=== PATIENT | male | born 1955 | race Caucasian/White ===

== ENCOUNTER 2022-07-26 07:31 | Outpatient (CLI) | payer MEDICARE, SELFPAY ==
[2022-07-26 09:57] LABS: Albumin Level 4.6 g/dL (3.5-5.1)
[2022-07-26 10:02] LABS: Anion Gap 12 mmol/L (8-16); Blood Urea Nitrogen 21 mg/dL (9-20); Calcium 9.2 mg/dL (8.4-10.2); Carbon Dioxide 29 mmol/L (22-30); Chloride 97 mmol/L (98-107); Estimated Glomerular Filt Rate > 60; Glucose 102 mg/dL (65-110); Sodium 138 mmol/L (137-145)
[2022-07-26 10:07] LABS: Basophils Percent Auto 0.3 % (0.2-1.2); Eosinophils Percent Auto 0.1 % (0-4.4); Hematocrit 37.2 % (42.0-52.0); Immature Granulocyte Absolute 0.26 K/mm3 (0.00-0.031); Immature Granulocyte Percent A 1.9 % (0-0.5); Lymphocytes Absolute Auto 0.69 K/mm3 (0.9-3.2); Lymphocytes Percent Auto 5.1 % (18.3-44.2); Mean Corpuscular HGB Conc 32.3 g/dl (32-36); Mean Corpuscular Hemoglobin 32.6 pg (26-34); Mean Corpuscular Volume 101.1 fl (80-100); Monocytes Absolute Auto 0.5 K/mm3 (0.1-0.6); Monocytes Percent Auto 3.8 % (2.6-8.5); Neutrophils Percent Auto 88.8 % (45.5-73.1); Platelet Count Result 271 k/mm3 (150-375); Red Blood Count 3.68 M/mm3 (4.6-6.20); Red Cell Distribution Width 13.9 % (11.5-14.5); White Blood Count 13.5 K/mm3 (4.5-10.0)
[2022-07-26 10:09] LABS: Appearance Urine Clear (Clear); Bilirubin Urine Negative (Negative); Blood Urine Negative (Negative); Color Urine Yellow (Yellow); Glucose Urine UA Negative (Negative); Ketones Urine Negative (Negative); Leukocyte Esterase Ur Negative LEU/UL (Negative); Nitrate Urine Negative (Negative); Protein Urine Negative (Negative); Specific Grav Ur 1.015 (1.001-1.035); Urobilinogen Urine 0.2 mg/dL (<2.0)
[2022-07-26 10:51] LABS: Urine Cotinine NEGATIVE
[2022-07-26 13:23] LABS: Add Urine Microscopic? NO
== END 2022-07-26 07:32 | disposition home or self-care (01) ==
PROVIDERS: Anesthesiology; PCP Internal Medicine; Visit Provider Specialist
DX: M17.11 Unilateral primary osteoarthritis, right knee (principal); I10 Essential (primary) hypertension; Z01.818 Encounter for other preprocedural examination
CPT/HCPCS: 36415; 80048; 80307; 81003; 82040; 83036; 85025; 87081

== ENCOUNTER 2022-08-30 00:58 | Day surgery (SDC) | payer MEDICARE, SELFPAY ==
[2022-07-26 07:55] VITALS: BMI 31.2
--- NOTE | 2022-07-26 08:24 | PC.NURSE ---
Report to the Outpatient Waiting Room, entrance under the green pavilion located off [facility], at time __1000 on date __08/30/22 . Planned Procedure Time: __1200 . Time changes happen often and if your time is changed the preop area will call you the afternoon before. - You and your visitor will be asked to self-screen and do not enter if you have any COVID symptoms. - We encourage only one visitor and NO visitors under age 16 are allowed at this time. Your visitor will receive communication by the phone number that is given day of service. - The patient visitor is requested to social distance or may leave the building when not with patient due to restrictions. - A mask is required within the hospital. TOTAL JOINT CLASS 07/26/22 AT 10 AM Patients may have clear liquids (water, carbonated beverages, clear teas, apple juice) until 3 hours prior to surgery with a maximum of 20 ounces. - No food from midnight until time of surgery - Infants may have breast milk until 4 hours before surgery, formula 6 hours prior to surgery. - Children will be allowed to drink immediately following surgery. If applicable, please bring a bottle or sippy cup to assist with drinking. Juice, water, soda, and popsicles are readily available. For infants on formula, please bring formula the day of surgery. Pacifiers are allowed. Take the following medications with a SIP of water the morning of surgery: _LEVOTHYROXINE,PREDNISONE Medications to discontinue per physician ___ASPIRIN 7 DAYS PRE OP PER DR HINES_AND ALL VITAMINS 3 DAYS PRE OP Date to take last dose_ASPIRIN__08/22/22 VITAMINS 08/26/22 Please no make-up, nail [place] citizen, hairspray, perfume, deodorant, or body powder the day of surgery. No jewelry (including any body piercings) or valuables the day of surgery, leave them at home. Please take a shower or bath the night before, or the morning of, surgery with an antibacterial soap. Wear comfortable, loose fitting clothing. Children are encouraged to wear pajamas. - Jewelry must be removed prior to entering the operating room. Rings and piercings that are not removed may be cut off. - The hospital will not accept responsibility for valuables. - Please leave all valuables, including medications, at home the day of surgery. If you are going home after surgery, a licensed class a regional truck driver must drive you home. - NO public transportation without another adult. - We recommend that an adult stay with you for 24 hours following discharge. - We also recommend that you do not drive, make important decision, drink alcoholic beverages, or take any drugs that were not prescribed by your health care provider for at least 24 hours after your discharge time. For Pediatric surgeries, we recommend two adults accompany the child home. Follow any additional instructions given to you from your surgeon. If you or anyone in your household have experienced Covid symptoms in the past week, please notify your surgeon or the nurse liaison at the phone number below for possible testing. VERBAL AND WRITTEN instructions given to ___PATIENT and asked if any additional questions and then verbalized understanding. Patient advised to call surgeon office or pre surgery nurse liaison [phone] if any additional questions.
[2022-07-26 08:49] VITALS: BP 148/89; PULSE 98; RESP 18; TEMP 36.8; O2SAT 97
[2022-08-30] VITALS (14 sets, daily range): BP systolic 117–163; BP diastolic 69–99; PULSE 87–109; RESP 12–20; TEMP 36.3–37.1; O2SAT 93–100
--- NOTE | ~2022-08-30 | XR_ITS ---
EXAMINATION: XR knee RT 2V DATE: 08/30/2022 15:28 INDICATION: Postoperative evaluation following right total knee arthroplasty. TECHNIQUE: Anteroposterior and lateral views of the right knee were obtained. COMPARISON: None. FINDINGS: Right total knee arthroplasty without patellar resurfacing appears well seated and in near anatomic a lignment. No fractures identified. Expected postoperative subcutaneous and intra-articular gas. Woun d VAC anterior to the knee. IMPRESSION: 1. Right total knee arthroplasty, negative for postoperative purposes. Reviewed, dictated and finalized at location A. HOUSE SUPERVISOR
[2022-08-30] MEDS: LACTATED RINGERS 1,000 ML 30 ML IV CONT ×2 (10:30→15:04)
--- NOTE | 2022-08-30 11:13 | WPDANESEPPF ---
Anes - Initial Pre Proc Eval Procedure: Operation Date: 08/30/22 12:00 Proposed Procedures p Right Total Knee Arthroplasty - Luis Mirza MD Date/Time: 08/30/22 11:13 Surgeon: Luis Mirza MD Pre Op Diagnosis: oa right knee Patient Data Age: 67 Gender: M Height: 1.68 m Weight: 84.5 kg Last Vital Signs Temp 36.5 C 08/30/22 10:11 Pulse 109 H 08/30/22 10:11 Resp 20 08/30/22 10:11 BP 163/89 H 08/30/22 10:11 Pulse Ox 100 08/30/22 10:11 O2 Del Method Room Air 08/30/22 10:11 Allergies Allergy/AdvReac Type Severity Reaction Status Date / Time hydrocodone AdvReac Intermediate Confusion Verified 08/30/22 09:51 Home Medications Medication Instructions Recorded Confirmed Type acetaminophen 650 mg 1,300 mg PO Q12H PRN Pain 07/26/22 08/30/22 History tablet,extended release (Tylenol Arthritis Pain) aspirin 81 mg tablet,delayed 81 mg PO DAILY 07/26/22 08/30/22 History release (Adult Low Dose Aspirin) cholecalciferol (vitamin D3) 1,250 1,250 mcg PO WEEKLY 07/26/22 08/30/22 History mcg (50,000 unit) tablet finasteride 5 mg tablet 5 mg PO DAILY 07/26/22 08/30/22 History levothyroxine 125 mcg tablet 125 mcg PO DAILY 07/26/22 08/30/22 History lisinopril 20 1 tablet PO DAILY 07/26/22 08/30/22 History mg-hydrochlorothiazide 25 mg tablet loratadine 10 mg tablet (Claritin) 10 mg PO DAILY 07/26/22 08/30/22 History prvlhlswrxng-tze-upntj acid-vit 1 tablet PO DAILY 07/26/22 08/30/22 History K-lycop 400 mcg-20 mcg-370 mcg tablet (One-A-Day Men's 50 Plus) omeprazole magnesium 20 mg 20 mg PO DAILY 07/26/22 08/30/22 History tablet,delayed release (Prilosec OTC) pravastatin 80 mg tablet 80 mg PO HS 07/26/22 08/30/22 History prednisone 20 mg tablet 20 mg PO DAILY 07/26/22 08/30/22 History tizanidine 4 mg tablet 4 mg PO HS 07/26/22 08/30/22 History Patient hx anesthesia problems: none Family hx anesthesia problems: none Results Review: All pre-operative results and documents have been reviewed as part of the pre-operative evaluation. [facility] Past Medical History Medical History CAD (coronary artery disease) Hyperlipidemia Hypertension Myasthenia gravis Surgical History Surgical History Stented coronary artery Social History Social History Smoking status: Never smoker Additional smoking assessment comments: DENIES ANY FORM OF TOBACCO USE Living arrangements: with family Spiritual care concerns: No Anes - Eval Final PreProcedure Day of Procedure 08/30/22 11:13 Patient weight: overweight Heart: regular rate and rhythm Lungs: clear to auscultation Airway: Mallampati scale class II Neurological: alert and oriented Last oral intake: >/= 8 hours ASA classification: III Emergent: no Anesthetic plan: proceed Anesthesia type and monitoring: general LMA and standard monitoring Other findings: no neuromuscular blocking agents Results Review: All pre-operative results and documents have been reviewed as part of the pre-operative evaluation. Informed Consent: The patient's anesthetic plan and its attendant risks and benefits were discussed with the patient/family/POA. Questions were solicited and answers provided to the satisfaction of the patient/family/POA.
[2022-08-30] MEDS: TRANEXAMIC ACID 1,000MG/ISO100 1,000 MG/100 ML BAG 200 MG IVPB (11:40)
--- NOTE | 2022-08-30 12:20 | WPDHPUPDATE1 ---
History and Physical Update Update Date/Time: 08/30/22 12:20 History and Physical has been reviewed, including an updated exam of the patient. There are NO changes in the patient's condition. Risks, benefits, and alternatives have been discussed and questions answered. Patient agrees to proceed with procedure.
[2022-08-30] MEDS: ceFAZolin 2 GM/D5W 50 ML 2 GM/50 ML BAG IVPB ×2 (12:31→20:29)
[2022-08-30] MEDS: ceFAZolin SODIUM 1 GM VIAL 3 GM (13:16)
[2022-08-30] MEDS: TRANEXAMIC ACID 1,000 MG/10 ML AMPUL 1000 MG IV PUSH (14:15)
--- NOTE | 2022-08-30 14:49 | W.PM.PROC2 ---
Procedure Note - Detailed Date of Procedure 08/30/22 Pre-op Diagnosis Osteoarthritis VArus right knee Right pre-patellar bursitis Right knee peripatellar osteophytosis Post-op Diagnosis Same Procedure Performed Right Total Knee Arthroplasty Lionel Triathlon Right Knee osteophytectomy of tash patella Right knee prepatellar bursectomy Right Knee injection of epinephrine and post-op pain relieving meds. Surgeon Luis Mirza MD Performance Improvement Coordinator on op record Anesthesia General Indications 1. The patient failed conservative management with regards to oral anti-inflammatory medications as well as intra-articular injection of cortisone and also intra-articular injection of viscosupplementation. 2. The patient continued to have significant pain despite conservative management including home physical therapy. 3. The patient has pain with interference of his normal sleep pattern. Description of Procedure The patient was informed of the risks and benefits and possible complications of total knee arthroplasty. These include but are not limited to the risk of infection. This could result in the need for multiple surgeries with the possibility of removal of the implant and long-term IV antibiotics sometimes requiring a revision procedure. Lower extremity blood clots that could result in . Extended recovery will was also discussed with the possibility of the need for physical therapy for more than 4 weeks. While a tourniquet is utilized bleeding can sometimes be a concern in some patients require blood transfusions after or during the procedure. Difficulty regaining his full range of motion and sometimes a sense of instability is noted. Some residual pain including patellofemoral pain. The patient was brought to the operating room and placed in supine position on the operating room table. Positioning was checked and verified. 1. We confirmed that the hip in the refuse flexible to greater than 90? without extraction of the drapes. 2. The initials that I placed on the knee in the holding area were visible at the time of the incision. 3. Surgical time-out was performed and we confirmed this was the correct patient and the correct side. All the equipment necessary for the proposed procedure was available. The patient had received his appropriate IV antibiotics as necessary for the proposed procedure. He had received his preoperative TXA injection. All the participants in the room agreed we were prepared to proceed. Four. I advised the incision with a marking pen and then placed a sealing sticky drape. 5. Margins of the patella proximal distal were defined. A medial parapatellar arthrotomy was planned. An Esmarch bandage was used to exsanguinate the right lower extremity. Tourniquet was raised to 300 mm and of mercury pressure. The knee was flexed to 45? with the incision. Right knee prepatellar bursectomy. The incision was carried down to the medial aspect of the patella. Hemostasis was obtained throughout with electrocautery. The medial margin of the quadriceps tendon and the vastus medialis was identified. The medial patellar retinaculum was identified. The medial margin of the patellar tendon was identified. Exuberant prepatellar bursa was then identified and dissected. The preprocedure elevator protecting the was performed with the Bovie electric cautery and with a surgical knife. I excised the entire prepatellar bursa. We then injected with the solution of epinephrine and pain medications the Carlyle's of solution. This was done medial to the patellar border along with the quadriceps and the soft tissues. The geniculate arteries were targeted and I carefully avoided intra-arterial injection. I then extended the incision down to the tibial tubercle. Proximal to the patella quadriceps tendon I freed adhesions. I then everted the patella and dissected the fat pad taking care to protect the patellar tendon. I then transected the medial me
[2022-08-30] MEDS: fentaNYL CITRATE INJ (*CRX) 100 MCG/2 ML VIAL 25 MCG IV PUSH ×7 (15:16→16:12)
--- NOTE | 2022-08-30 16:00 | SUR.PHASEI ---
Patient meets criteria to be discharged from PACU. However, no inpatient beds available at this time. Will hold patient in recovery until room is assigned. Patient's son Jean updated regarding patient's condition and bed status within the hospital.
--- NOTE | 2022-08-30 17:17 | ADMGEN ---
This patient, Osbaldo Barrios, was admitted to Medical Room 240-. Patient/family oriented to hospital policies and general routines including ID bracelet, bed and alarms, visiting hours, pain management, procedures, bathroom and other care routines, personal items, smoking policy, room service/diet, and visiting hours. Information on how to activate the Rapid Response Team has been discussed. Patient/Family are encouraged to report perceived risks to care and to ask questions if they do not understand what they are told or what they should do.
[2022-08-30] MEDS: SODIUM CHLORIDE 0.9% IV 1,000 ML 125 ML IV CONT (17:38)
[2022-08-30] MEDS: SENNA/DOCUSATE SODIUM TABLET 2 TAB PO (17:38)
[2022-08-30] MEDS: HYDROcodone/acetaminophen (*CRX) 5-325 MG TABLET 1 TAB PO (20:24)
[2022-08-30] MEDS: ASPIRIN 325 MG ENTERIC TABLET PO (21:33)
[2022-08-31] MEDS: HYDROcodone/acetaminophen (*CRX) 5-325 MG TABLET 1 TAB PO ×3 (02:10→10:59)
[2022-08-31 04:04] VITALS: BP 127/70; PULSE 67; RESP 16; TEMP 36; O2SAT 97
[2022-08-31] MEDS: ceFAZolin 2 GM/D5W 50 ML 2 GM/50 ML BAG IVPB ×2 (04:24→10:59)
[2022-08-31 06:12] LABS: Basophils Percent Auto 0.1 % (0.2-1.2); Hemoglobin 10.2 g/dL (14.0-18.0); Immature Granulocyte Absolute 0.24 K/mm3 (0.00-0.031); Immature Granulocyte Percent A 1.3 % (0-0.5); Lymphocytes Absolute Auto 0.38 K/mm3 (0.9-3.2); Mean Corpuscular HGB Conc 32.9 g/dl (32-36); Mean Corpuscular Volume 97.2 fl (80-100); Mean Platelet Volume 9.7 fl (7.4-10.4); Monocytes Absolute Auto 1.5 K/mm3 (0.1-0.6); Monocytes Percent Auto 8.1 % (2.6-8.5); Neutrophils Absolute Auto 16.5 K/mm3 (1.3-6.7); Neutrophils Percent Auto 88.5 % (45.5-73.1); Platelet Count Result 238 k/mm3 (150-375); Red Blood Count 3.19 M/mm3 (4.6-6.20); Red Cell Distribution Width 13.4 % (11.5-14.5); White Blood Count 18.6 K/mm3 (4.5-10.0)
[2022-08-31 06:25] LABS: Anion Gap 6 mmol/L (8-16); Blood Urea Nitrogen 31 mg/dL (9-20); Calcium 8.6 mg/dL (8.4-10.2); Carbon Dioxide 26 mmol/L (22-30); Chloride 99 mmol/L (98-107); Estimated CRCL calculation 57 ml/min; Estimated Glomerular Filt Rate > 60; Glucose 121 mg/dL (65-110); Potassium 4.1 mmol/L (3.4-5.0); Sodium 131 mmol/L (137-145)
[2022-08-31] MEDS: polyethylene glycoL 3350 17 GM POWD.PACK PO (08:10)
[2022-08-31] MEDS: SENNA/DOCUSATE SODIUM TABLET 2 TAB PO (08:10)
[2022-08-31] MEDS: ASPIRIN 325 MG ENTERIC TABLET PO (08:10)
--- NOTE | 2022-08-31 08:37 | WPDANESPN ---
Anes - Prog Note Post-Op Date/Time: 08/31/22 08:37 Cardiovascular status: normal Respiratory status: normal Airway patency: baseline Mental status: baseline Post-Op hydration status: normal Vital Signs: Last Vital Signs Temp 36.0 C L 08/31/22 04:04 Pulse 67 08/31/22 04:04 Resp 16 08/31/22 04:04 BP 127/70 08/31/22 04:04 Pulse Ox 97 08/31/22 04:04 O2 Del Method Room Air 08/31/22 07:40 O2 Flow Rate 8 08/30/22 15:20 Pain Score (VAS): 12/01 I/O: Intake & Output 08/30/22 08/31/22 08/31/22 23:59 07:59 15:59 Intake Total 750 450 Output Total 200 600 Balance 550 -150 Laboratory Tests 08/31/22 05:02 08/30/22 08/31/22 08/31/22 10:26 05:02 05:02 WBC Pending RBC Pending Hgb Pending Hct Pending MCV Pending MCH Pending MCHC Pending RDW Pending Plt Count Pending MPV Pending Immature Gran % (Auto) Pending Neut % (Auto) Pending Lymph % (Auto) Pending [place] % (Auto) Pending Eos % (Auto) Pending Baso % (Auto) Pending Lymph # (Auto) Pending [place] # (Auto) Pending Eos # (Auto) Pending Baso # (Auto) Pending Abs Immat Gran (auto) Pending Absolute Neuts (auto) Pending Absolute Nucleated RBC Pending Nucleated RBC % Pending Sodium 131 L Potassium 4.1 Chloride 99 Carbon Dioxide 26 Anion Gap 6 L BUN 31 H D Creatinine 1.10 Estim Creat Clear Calc 57 Estimated GFR > 60 Glucose 121 H Calcium 8.6 Blood Type O Positive Antibody Screen Negative Post-procedural complaints: none Patient Feedback: Patient satisfied with anesthetic care.
--- NOTE | 2022-08-31 10:52 | PM.DS ---
DS: Admitting Diagnosis Discharge Date 08/31/22 Admitting Diagnosis Right Knee OA DS: Discharge Diagnosis Discharge Diagnosis Plan Had a right TKA and an uneventful PO course. Now for D/C to home. DS: Summary Hospital Course Reason for hospitalization: Right total knee arthroplasty. Hospital Course: 67 yo with severe right knee OA. Had TKA on 08/30/22. This went well. He had an uneventful hospital course and is ready for D/C. Status at Discharge Cognitive/behavioral status at discharge: WNL Functional status at discharge: uses cane/walker Time Spent with Patient Time attestation: Total time spent providing and/or coordinating discharge services: Exam Extrem: Other: CAves are NT. moves ankle and foot without problems Dressing is C+D Antonio intact understands exercises to do at home Walker ambulation DS: Data Data Completed and Pending Completed studies during hospitalization: AP and Lat xrays of post op knee look good. Labs on day of discharge: Labs from last 24 hours 08/31/22 08/31/22 08/30/22 05:02 05:02 10:26 WBC 18.6 H RBC 3.19 L Hgb 10.2 L Hct 31.0 L MCV 97.2 MCH 32.0 MCHC 32.9 RDW 13.4 Plt Count 238 MPV 9.7 Immature Gran % (Auto) 1.3 H Neut % (Auto) 88.5 H Lymph % (Auto) 2.0 L [place] % (Auto) 8.1 Eos % (Auto) 0.0 Baso % (Auto) 0.1 L Lymph # (Auto) 0.38 L [place] # (Auto) 1.5 H Eos # (Auto) 0.0 Baso # (Auto) 0.0 Abs Immat Gran (auto) 0.24 H Absolute Neuts (auto) 16.5 H Absolute Nucleated RBC 0.0 Nucleated RBC % 0.0 Sodium 131 L Potassium 4.1 Chloride 99 Carbon Dioxide 26 Anion Gap 6 L BUN 31 H D Creatinine 1.10 Estim Creat Clear Calc 57 Estimated GFR > 60 Glucose 121 H Calcium 8.6 Blood Type O Positive Antibody Screen Negative Procedures/Treatments: 08/30/22 TKA Imaging My impression: Post op TKA of right knee in excellent position Discharge Plan Discharge Patient Disposition: Home, Self-Care Discharge Instructions: F/U with Leb on next week. Take ASA 325 mg po qD and use [place] for pain. Call Dr. Mirza directly if any problems. [phone]. Stand Alone Forms: General Discharge Instructions Follow-up/Referrals: Luis Mirza MD [Physician] - Discharge Medications: Continued tizanidine 4 mg tablet 4 mg PO HS prednisone 20 mg tablet 20 mg PO DAILY aspirin [Adult Low Dose Aspirin] 81 mg Tablet,Delayed Release (Dr/Ec) 81 mg PO DAILY pravastatin 80 mg tablet 80 mg PO HS levothyroxine 125 mcg tablet 125 mcg PO DAILY lisinopril-hydrochlorothiazide 20-25 mg tablet 1 tablet PO DAILY finasteride 5 mg tablet 5 mg PO DAILY omeprazole magnesium [Prilosec OTC] 20 mg Tablet,Delayed Release (Dr/Ec) 20 mg PO DAILY cholecalciferol (vitamin D3) 1,250 mcg (50,000 unit) Tablet 1,250 mcg PO WEEKLY Label Comments: TAKES ON SUNDAYS acetaminophen [Tylenol Arthritis Pain] 650 mg Tablet Extended Release 1,300 mg PO Q12H PRN (Reason: Pain) loratadine [Claritin] 10 mg Tablet 10 mg PO DAILY One-A-Day Men's 50 Plus 400-20-370 mcg Tablet 1 tablet PO DAILY
--- NOTE | 2022-08-31 11:31 | PM.IMCN ---
Assessment and Plan Assessment and plan (1) Status post total right knee replacement: Code(s): Z96.651 - Presence of right artificial knee joint Status: Acute Assessment and Plan: Underwent right TKA 08/30/[address] Mirza. Tolerated procedure well. Managed per Orthopedic surgery. Discussed with patient maintaining bowel regimen postoperatively, especially while taking narcotics. (2) Hypertension: Code(s): I10 - Essential (primary) hypertension Status: Chronic Assessment and Plan: Blood pressures well controlled. Continue home lisinopril-hydrochlorothiazide. (3) CAD (coronary artery disease): Code(s): I25.10 - Atherosclerotic heart disease of [place] tribe coronary artery without angina pectoris Status: Chronic Assessment and Plan: No acute issues. Established with automotive manufacturer, Dr. Diaz, in [place]. Continue aspirin and statin. (4) Myasthenia gravis: Code(s): G70.00 - Myasthenia gravis without (acute) exacerbation Status: Acute Assessment and Plan: Recent onset in January 2022. Followed by Neurology. Maintained on prednisone 20 mg daily. (5) Hypothyroidism: Code(s): E03.9 - Hypothyroidism, unspecified Status: Acute Assessment and Plan: Continue levothyroxine HPI Data of Consult Consult date: 08/31/22 Requesting Physician: Luis Mirza MD Primary Care Provider: Kate KellyMD Consult Narrative Narrative: Date of service: 08/31/22 Osbaldo Barrios is a 67 year old male with a history of CAD, hypertension, hyperlipidemia, and recent myasthenia gravis followed by Neurology who underwent right total knee arthroplasty on 08/30/22 and is being seen in consultation for medical management. He tolerated the procedure well. His pain. No postoperative nausea, vomiting, or shortness of breath. He reports he has not had a bowel movement since his surgery but is passing flatus. Denies any issues with urination. Plans to return home postoperatively where he lives with his sister who will be able to assist him as needed. He has about 3 steps to enter the home. He feels he has been doing well with therapy and will be able to manage at home without difficulty. Review of Systems Review of Systems: All systems reviewed & are unremarkable except as noted in HPI and below [facility] Past Medical History Medical History (Updated 08/31/22 @ 16:39 by Brittany Catalan PA-C) BPH (benign prostatic hyperplasia) CAD (coronary artery disease) Hyperlipidemia Hypertension Hypothyroidism Myasthenia gravis Surgical History Surgical History (Updated 08/31/22 @ 16:37 by Brittany Catalan PA-C) History of total right knee replacement (~08/2022) Stented coronary artery Family History Family History (Updated 08/31/22 @ 16:37 by Brittany Catalan PA-C) Father Heart disease Mother Hypertension Social History Social History (Updated 08/31/22 @ 16:38 by Brittany Catalan PA-C) Social History: Patient lives at home with his sister. He is independent with his daily activities. His primary care provider is Dr. Kelly. He is a full code. Smoking status: Never smoker Alcohol intake: current Alcohol use details: 1 drink/month Substance use: never Lack of Transportation: No Lack of Food: Never True Current Housing: I Have Housing Concerned About Future Housing: No Difficulty Paying Gas/Electric Bills: No Difficulty Paying for Meds: No Currently Unemployed: No Education: High School Diploma/GED Difficulty w/ Childcare or Family Care: No Spiritual care concerns: No Meds Home Medications and Allergies Home Medications Medication Instructions Recorded Confirmed Type acetaminophen 650 mg 1,300 mg PO Q12H PRN Pain 07/26/22 08/30/22 History tablet,extended release (Tylenol Arthritis Pain) aspirin 81 mg tablet,delayed 81 mg PO DAILY 07/26/22 08/30/22 History release
== END 2022-08-31 11:15 | disposition home or self-care (01) ==
LOC: ANHSURGERY 09:41 → ANH2MED 17:55
PROVIDERS: PCP Internal Medicine; Visit Provider Specialist
PROC: (CPT 27447; principal; 2022-08-30 12:00)
DX: M17.11 Unilateral primary osteoarthritis, right knee (principal); M25.761 Osteophyte, right knee; M70.41 Prepatellar bursitis, right knee; I25.10 Atherosclerotic heart disease of native coronary artery without angina pectoris; E78.5 Hyperlipidemia, unspecified; I10 Essential (primary) hypertension; G70.00 Myasthenia gravis without (acute) exacerbation; E03.9 Hypothyroidism, unspecified; Z95.5 Presence of coronary angioplasty implant and graft; Z79.82 Long term (current) use of aspirin
CPT/HCPCS: 27447; 36415; 73560; 80048; 80307; 81003; 82040; 83036; 85025; 86850; 86900; 86901; 87081; 97110; 97161; 97165; A9270; C1776; C9290; J0171; J0690; J1100; J1885; J2250; J2270; J2405; J2704; J2795; J3010; J3370; J7030; J7120